=== PATIENT | male | born 1970 | race Caucasian/White ===

== ENCOUNTER 2017-02-08 09:57 | Emergency (ER) | payer OTHER ==
[2017-02-08] MEDS ORDERED: KETOROLAC 60 MG/2 ML VIAL IM STA (12:17)
[2017-02-08] MEDS ORDERED: DEXAMETHASONE 10 MG/ML VIAL PO STA (12:17)
--- NOTE | 2017-02-08 12:20 | ED Physician Documentation ---
History of Present Illness - Stated complaint Stated Complaint: RT HIP PX - Chief complaint Chief Complaint: Ext Problem - History obtained from History obtained from: Patient - History of Present Illness Timing: Other (1 month) Pain level max: 7 Pain level now: 4 Quality: aching, dull pain Improved by: not lying on his back or walking Worsened by: movement, weight bearing - Additonal information Additional information: Patient is a 47-year-old male who presents to the emergency department with right buttock pain for the past month. Denies any trauma. Starts mid buttock and radiates down the posterior and lateral aspect of the right leg. No numbness or tingling. No loss of bowel or bladder control. States he thought that this may have been from sitting on his wallet. Denies any injury. Denies any unintentional weight loss. Denies any IV drug use. No fevers no vomiting. Review of Systems Ten Systems: 10 systems reviewed and negative Constitutional: denies: Fever, Chills Ears: denies: Ear pain Nose: denies: Rhinorrhea / runny nose, Congestion Throat: denies: Sore throat Cardiac: denies: Chest pain / pressure Respiratory: denies: Cough GI: denies: Abdominal Pain, Nausea, Vomiting, Diarrhea Skin: denies: Rash Musculoskeletal: denies: Neck pain, Back pain Neurologic: denies: Headache PD PAST MEDICAL HISTORY - Past Medical History Past Medical History: Yes Respiratory: Sleep apnea - Past Surgical History Past Surgical History: Yes General: Appendectomy, Other Ortho: Knee replacement - Present Medications Home Medications: Ambulatory Orders Medication Instructions Recorded Confirmed Meloxicam [Mobic] 15 mg PO DAILY PRN #20 tablet 02/08/17 predniSONE [Prednisone] 40 mg PO DAILY #10 tablet 02/08/17 - Allergies Allergies/Adverse Reactions: Allergies Allergy/AdvReac Type Severity Reaction Status Date / Time No Known Drug Allergies Allergy Verified 02/08/17 10:16 - Social History Does the pt smoke?: No Smoking Status: Never smoker Does the pt drink ETOH?: No Does the pt have substance abuse?: No - Immunizations Immunizations are current?: Yes Immunizations: TDAP current <10years - POLST Patient has POLST: No PD ED PE NORMAL - Vitals Vital signs reviewed: Yes - General General: Alert and oriented X 3, No acute distress, Well developed/nourished - HEENT HEENT: Moist mucous membranes - Neck Neck: Supple, no meningeal sign - Cardiac Cardiac: RRR, Strong equal pulses - Respiratory Respiratory: No respiratory distress, Clear bilaterally - Back Back: No spinal TTP (No midline tenderness to palpation or percussion) - Derm Derm: Warm and dry - Extremities Extremities: No deformity, No tenderness to palpate, Normal ROM s pain, No edema , No calf tenderness / cord, Other (TTP over the R si joint, reproduces his pain. FROM of the hip without pain.) - Neuro Neuro: Alert and oriented X 3, No motor deficit, No sensory deficit - Psych Psych: Normal mood, Normal affect Results - Vitals Vitals: Vital Signs - 24 hr 02/08/17 02/08/17 10:13 12:34 Temperature 36.7 C 36.7 C Heart Rate 83 75 Respiratory 18 18 Rate Blood Pressure 113/75 109/73 O2 Saturation 99 100 Oxygen O2 Source Room air PD MEDICAL DECISION MAKING - ED course Complexity details: considered differential (no cauda equina, no spinal epidural abscess, no fracture, no aortic dissection or evidence of aneursym rupture), d/w patient, d/w family ED course: Patient is patient is a 47-year-old male who presents to the emergency department what appears to be right-sided sacroiliac pain. Appears consistent with sacroiliitis. He is well-appearing, nontoxic. Afebrile. No pain with range of motion of the right hip. No evidence of fracture, avascular necrosis, tumor. Will hold x-rays at this time and treat conservatively. Ambulating without difficulty. Patient counseled regarding signs and symptoms for which I believe and urgent re-evaluation would be necessary. Patient with good understanding of and agreement to plan and is comfortable going home at this time This document was made in part using voice recognition software. While efforts are made to proofread this document, sound alike and grammatical errors may occur. Departure - Departure Disposition: 01 Home, Self Care Clinical Impression: Sacroiliitis Condition: Good Instructions: ED Sacroiliitis Follow-Up: Leisa Young MD [Primary Care Provider] - Within 1 week Prescriptions: Meloxicam [Mobic] 15 mg PO DAILY PRN #20 tablet PRN Reason: pain predniSONE [Prednisone] 40 mg PO DAILY #10 tablet Comments: Return if you worsen. This should improve over the next few days. You may need physical therapy and this would need to be prescribed by your doctor. Discharge Date/Time: 02/08/17 12:34
[2017-02-08] MEDS ORDERED: DEXAMETHASONE 10 MG/ML VIAL ONE (12:24)
[2017-02-08] MEDS ORDERED: KETOROLAC 60 MG/2 ML VIAL ONE (12:24)
[2017-02-08 12:35] VITALS: BP 109/73
== END 2017-02-08 12:34 | disposition home or self-care (01) ==
LOC: ED 09:57
DX: M46.1 Sacroiliitis, not elsewhere classified (principal)
CPT/HCPCS: 96372; 99283

== ENCOUNTER 2017-04-04 18:29 | Emergency (ER) | payer OTHER ==
--- NOTE | 2017-04-04 20:32 | ED Physician Documentation ---
PD HPI UPPER EXT INJURY - Stated complaint Stated Complaint: R SHOULDER PX/INJ - Chief complaint Chief Complaint: Ext Problem - History obtained from History obtained from: Patient - History of Present Illness Location: Right, Shoulder (He has had ongoing pain in the anterior right shoulder for about a month it suddenly got worse today while using a wrench. No specific injury.) Review of Systems Constitutional: reports: Reviewed and negative Cardiac: reports: Reviewed and negative Respiratory: reports: Reviewed and negative PD PAST MEDICAL HISTORY - Past Medical History Respiratory: Sleep apnea - Past Surgical History Past Surgical History: Yes General: Appendectomy, Other Ortho: Knee replacement - Present Medications Home Medications: Ambulatory Orders Medication Instructions Recorded Confirmed Meloxicam [Mobic] 15 mg PO DAILY PRN #20 tablet 02/08/17 04/04/17 predniSONE [Prednisone] 40 mg PO DAILY #10 tablet 02/08/17 04/04/17 - Allergies Allergies/Adverse Reactions: Allergies Allergy/AdvReac Type Severity Reaction Status Date / Time No Known Drug Allergies Allergy Verified 04/04/17 18:42 - Social History Does the pt smoke?: No Smoking Status: Never smoker Does the pt drink ETOH?: No Does the pt have substance abuse?: No - Immunizations Immunizations are current?: Yes Immunizations: TDAP current <10years - POLST Patient has POLST: No PD ED PE NORMAL - Vitals Vital signs reviewed: Yes - General General: Alert and oriented X 3, No acute distress - Neck Neck: Supple, no meningeal sign, No bony TTP - Extremities Extremities: Other (Right shoulder is mildly tender over the AC joint and glenohumeral joints, actively abducts to a little less than 90, does better passively with positive supraspinatus testing and a lot of pain with forced external rotation.) - Neuro Neuro: Alert and oriented X 3, Normal speech - Psych Psych: Normal mood, Normal affect Results - Vitals Vitals: Vital Signs - 24 hr 04/04/17 04/04/17 18:40 21:35 Temperature 37.0 C 36.8 C Heart Rate 88 65 Respiratory 16 16 Rate Blood Pressure 134/84 H 134/88 H O2 Saturation 97 97 Oxygen O2 Source Room air - Rads (name of study) 3v R shoulder Radiology: EMP read contemporaneously (WILLID no Frx) Departure - Departure Disposition: Home, Self Care Clinical Impression: Rotator cuff (capsule) sprain Qualifiers: Encounter type: initial encounter Laterality: right Qualified Code(s): S43.421A - Sprain of right rotator cuff capsule, initial encounter Condition: Good Record reviewed to determine appropriate education?: Yes Instructions: ED Torn Rotator Cuff Follow-Up: [facility] [Provider Group] - Within 1 week Comments: Wear the sling as needed but come out of it several times a day to do the exercises as shown to maintain mobility of the shoulder joint. Return if worse. Call on Friday to follow-up with the orthopedic surgeon. Your blood pressure was elevated today on check into the emergency department. This does not mean that you have hypertension, it is a common phenomenon to come to the emergency department and have elevated blood pressure. I recommend that you see your primary care physician within the week to have it rechecked when you are feeling better. Discharge Date/Time: 04/04/17 21:36
--- NOTE | 2017-04-04 21:23 | XRAY Report ---
EXAM: RIGHT SHOULDER RADIOGRAPHY EXAM DATE: 04/04/2017 08:54 PM. CLINICAL HISTORY: Trauma, pain. COMPARISON: None. TECHNIQUE: 3 views. FINDINGS: Bones: Normal. No fracture or bone lesion. Joints: Minimal degenerative changes. Anatomic alignment. Soft tissues: Unremarkable. Clear visualized lung. IMPRESSION: Minimal degenerative changes. [facility] Referring Provider Line: [phone] SITE ID: [id number]
[2017-04-04 21:36] VITALS: BP 134/88
== END 2017-04-04 21:36 | disposition home or self-care (01) ==
LOC: ED 18:29
DX: S43.421A Sprain of right rotator cuff capsule, initial encounter (principal); X50.1XXA Overexertion from prolonged static or awkward postures, initial encounter; R03.0 Elevated blood-pressure reading, without diagnosis of hypertension
CPT/HCPCS: 99283

== ENCOUNTER 2019-07-20 06:57 | Outpatient (CLI) | payer OTHER ==
--- NOTE | 2019-07-20 09:04 | MRI Report ---
Reason: STRAIN UNSP MUSC/FASC/TEND AT SHLDR/UP ARM, UNSP A Procedure Date: 07/20/2019 Accession Number: [id number] / [id number] Procedure: MRI - Shoulder LT W/O CPT Code: Final Report FULL RESULT: EXAM: LEFT SHOULDER MRI WITHOUT CONTRAST EXAM DATE: 07/20/2019 08:24 AM. CLINICAL HISTORY: Muscular strain at the shoulder. Superolateral shoulder pain for a month. Popping. COMPARISON: None. TECHNIQUE: Multiplanar, multisequence T1-weighted and fluid-sensitive sequences of the shoulder without contrast. Other: None. FINDINGS: Acromioclavicular Region: The acromion is type II. Moderate acromioclavicular osteoarthropathy is evidenced by bony hypertrophy. The coracoacromial and coracoclavicular ligaments are intact. No subacromial/subdeltoid bursal fluid. Glenohumeral Region: No subluxation. No effusion or loose bodies. The articular cartilage is unremarkable. The glenohumeral ligaments and joint capsule are unremarkable. Bone Marrow: No fracture, marrow edema or bone lesions. Labrum: The labrum is unremarkable on this nonarthrographic study. Musculature/Rotator Cuff: The subscapularis, supraspinatus, infraspinatus, and teres minor tendons are intact. No edema or fatty atrophy. Biceps Tendon: The biceps tendon is intact. There is a small mount of fluid in its sheath and the surrounding musculature is mildly edematous (series 401, image 10). Other: The subcutaneous tissues are unremarkable. IMPRESSION: 1. Moderate acromioclavicular osteoarthropathy. 2. Mild to moderate tenosynovitis of the biceps tendon sheath. [facility]
== END 2019-07-20 06:58 | disposition home or self-care (01) ==
LOC: DI 06:57
PROVIDERS: ATTEND Family Medicine
DX: M19.012 Primary osteoarthritis, left shoulder (principal); M65.812 Other synovitis and tenosynovitis, left shoulder